=== PATIENT | male | born 1945 | race Caucasian/White ===

== ENCOUNTER 2019-01-24 13:58 | Emergency (ER) | payer MEDICARE, OTHER ==
[~2019-01-24] VITALS: Ht 180.3 cm; Wt 88.1 kg
[2019-01-24 14:12] VITALS: BP 193/88
--- NOTE | 2019-01-24 14:12 | NUR ---
AT BEDSIDE FOR ASSESSMENT AND STAPLE REMOVAL
== END 2019-01-24 14:43 | disposition home or self-care (01) ==
LOC: ED 14:30
DX: S01.01XD Laceration without foreign body of scalp, subsequent encounter (principal); I10 Essential (primary) hypertension; W18.30XD Fall on same level, unspecified, subsequent encounter
CPT/HCPCS: 99281

== ENCOUNTER 2019-11-27 22:20 | Emergency (ER) | payer MEDICARE ==
[~2019-11-27] VITALS: Ht 180.3 cm; Wt 80.0 kg
[~2019-11-27 22:20] MED LIST: ASPI81TA59 PO; CARV6.2512 PO; LEVE500T53 PO; LISI-167 PO
--- NOTE | 2019-11-27 22:53 | NUR ---
74 year old male to ed for htn. 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 He denies any new symptoms including chest pain, SOB, dizziness, worsening weakness, headache, numbness or tingling.
[2019-11-27 23:27] LABS: ANION GAP 5 mmol/L (5-15); CALCIUM 9.3 mg/dL (8.5-10.1); CHLORIDE 104 mmol/L (98-107)
[2019-11-27 23:28] LABS: CREATININE 0.78 mg/dL (0.7-1.3)
[2019-11-27 23:50] VITALS: BP 152/68
== END 2019-11-28 00:42 | disposition home or self-care (01) ==
LOC: ED 23:30
DX: I45.10 Unspecified right bundle-branch block (principal); E11.65 Type 2 diabetes mellitus with hyperglycemia; I10 Essential (primary) hypertension; Z86.73 Personal history of transient ischemic attack (TIA), and cerebral infarction without residual deficits
CPT/HCPCS: 36415; 80048; 93005; 99284

== ENCOUNTER 2020-09-18 18:15 | Emergency (ER) | payer MEDICARE ==
[~2020-09-18] VITALS: Ht 177.8 cm; Wt 77.9 kg
--- NOTE | 2020-09-18 18:43 | NUR ---
PT AMBULATORY TO ROOM FROM TRIAGE, CHANGED INTO GOWN, MONITORS IN PLACE. CALL LIGHT WITHIN REACH. PT STATES HE TOOK HIS BP AT HOME AND IT WAS 200'S SYSTOLIC SO HE THOUGHT HE SHOULD GET IT CHECKED. PT HX OF STROKE 1 YR AGO. DENIES CP/SOB/ECHAVARRIA
--- NOTE | 2020-09-18 18:50 | NUR ---
Report from Jon FAULKNER
--- NOTE | 2020-09-18 18:50 | NUR ---
REPORT TO LCUIE HURLEY
[2020-09-18] MEDS ORDERED: SODIUM CHLORIDE FLUSH 10ML SYR IVF ONE (19:30)
[2020-09-18 19:39] LABS: BASOPHILS % (AUTO) 1 % (0-1); EOSINOPHILS % (AUTO) 2 % (1-7); LYMPHOCYTES % (AUTO) 13 % (22-44); MEAN CORPUSCULAR HEMOGLOBIN 32.6 pg (27.5-34.5); MEAN CORPUSCULAR HGB CONC 34.3 g/dL (33.2-36.2); MONOCYTES % (AUTO) 9 % (2-9); NEUTROPHILS % (AUTO) 75 % (42-75); PLATELET COUNT 145 x10^3/uL (130-400); RED CELL DISTRIBUTION WIDTH 14.1 % (9.4-14.8)
[2020-09-18 19:50] LABS: ALBUMIN 3.4 g/dL (3.4-5.0); ANION GAP 4 mmol/L (5-15); CALCIUM 8.9 mg/dL (8.5-10.1); CHLORIDE 107 mmol/L (98-107); CREATININE 0.63 mg/dL (0.7-1.3)
[2020-09-18 19:53] LABS: TROPONIN I 0.043 ng/mL (0.000-0.045)
[2020-09-18 20:15] VITALS: BP 165/67
[2020-09-18] MEDS ORDERED: HYDROCHLOROTHIAZIDE 12.5 MG CAPSULE PO ONE (21:00)
== END 2020-09-18 21:02 | disposition home or self-care (01) ==
LOC: ED 19:43
DX: I10 Essential (primary) hypertension (principal); I45.19 Other right bundle-branch block; E11.9 Type 2 diabetes mellitus without complications
CPT/HCPCS: 36415; 80048; 82040; 84484; 85025; 93005; 99284

== ENCOUNTER 2020-09-24 17:11 | Emergency (ER) | payer MEDICARE ==
[~2020-09-24] VITALS: Ht 180.3 cm; Wt 77.6 kg
--- NOTE | 2020-09-24 17:35 | NUR ---
PT C/O OF HTN AT HOME OF OVER 200. PT DENIES HEADACHE, SOB, AND CP. DENIES MISSING BP MEDICATION SCHEDULE. ATTACHED TO CARD/SP02/BP MONITORS. ANGELITO. UJAN. BED IN LOW POSITION, RAILS ENGAGED, CALL LIGHT ON LAP. WCTM
[2020-09-24 18:08] VITALS: BP 140/68
--- NOTE | 2020-09-24 18:08 | NUR ---
REPEAT EKG AT BEDSIDE
== END 2020-09-24 18:35 | disposition home or self-care (01) ==
LOC: ED 17:20
DX: Z00.00 Encounter for general adult medical examination without abnormal findings (principal); I45.19 Other right bundle-branch block; I10 Essential (primary) hypertension; E11.9 Type 2 diabetes mellitus without complications; Z86.73 Personal history of transient ischemic attack (TIA), and cerebral infarction without residual deficits
CPT/HCPCS: 93005; 99283